=== PATIENT | male | born 1995 | race Two or more races ===

== ENCOUNTER 2019-04-17 23:59 | Emergency (ER) | payer BC, OTHER ==
[~2019-04-17] VITALS: Ht 185.4 cm; Wt 106.6 kg
[2019-04-18 03:41] VITALS: BP 131/80
[2019-04-18] MEDS ORDERED: DexAMETHasone SOD PHOS 10MG/1ML VIAL INJ IM ONE (03:45)
== END 2019-04-18 04:38 | disposition home or self-care (01) ==
LOC: ER 23:59
DX: M23.8X1 Other internal derangements of right knee (principal)
CPT/HCPCS: 29505; 73562; 96372; 99283; J1100